=== PATIENT | male | born 1960 | race Caucasian/White ===

== ENCOUNTER 2020-03-15 15:28 | Emergency (ER) | payer OTHER, MEDICAID, SELFPAY ==
[2020-03-15] VITALS (7 sets, daily range): BP systolic 106–123; BP diastolic 65–79; PULSE 80–85; RESP 15–23; TEMP 37.1; O2SAT 95–99; BMI 30.1
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
--- NOTE | 2020-03-15 16:39 | DI.RAD.S_ITS ---
PROCEDURE: XR CHEST 1V INDICATIONS: chest pain TECHNIQUE: One view of the chest was acquired. COMPARISON: None. FINDINGS: Surgical changes and devices: None. Lungs and pleura: Lungs are clear. No pleural effusions or pneumothorax. Mediastinum: Mediastinal contours appear normal. Heart size is normal. Bones and chest wall: No suspicious bony lesions. Overlying soft tissues appear unremarkable. IMPRESSION: No acute cardiopulmonary abnormality. Dictated by: Buddy Borja M.D. on 03/15/2020 at 17:28 Approved by: Buddy Borja M.D. on 03/15/2020 at 17:29
[2020-03-15 16:54] LABS: Prothrombin Time 11.6 SECONDS (10.1-12.7)
[2020-03-15 16:57] LABS: PTT Partial Thromboplastin Tim 28 SECONDS (26.4-36.2)
[2020-03-15 17:01] LABS: Alanine Aminotransferase 19 IU/L (<50); Albumin 4.4 g/dL (3.5-5.0); Albumin Globulin Ratio 1.5 (1.0-2.8); Alkaline Phosphatase 69 U/L (38-126); Aspartate Aminotransferase 22 IU/L (17-59); BUN Creatinine Ratio 15.6 (6-22); Blood Urea Nitrogen 17 mg/dL (9-20); Calcium 9.2 mg/dL (8.4-10.2); Carbon Dioxide 32 mmol/L (22-32); Chloride 102 mmol/L (98-107); Creatine Kinase 51 U/L (55-170); Estimated Glomerular Filt Rate > 60.0 mL/min (>60); Globulin 2.9 g/dL (1.7-4.1); Glucose 160 mg/dL (70-100); HEMOLYSIS < 15 (0-50); Lipase 113 U/L (23-300); Potassium 3.9 mmol/L (3.4-5.1); Sodium 140 mmol/L (137-145); Total Protein 7.3 g/dL (6.3-8.2)
[2020-03-15 17:04] LABS: Add Manual Diff / Slide Review NO; Basophils Absolute Auto 0 /uL (0-100); Basophils Percent Auto 0.2 % (0-2); Eosinophils Absolute Auto 0 /uL (0-450); Hematocrit 44.6 % (41-53); Hemoglobin 15.5 g/dL (13.5-17.5); Lymphocytes Absolute Auto 900 /uL (1100-4500); Lymphocytes Percent Auto 8.9 % (25-40); Mean Corpuscular HGB Conc 34.7 % (30-36); Mean Corpuscular Hemoglobin 31.7 PG (26-34); Mean Corpuscular Volume 91.3 fL (80-100); Monocytes Absolute Auto 400 /uL (0-900); Monocytes Percent Auto 4.1 % (3-14); Neutrophils Absolute Auto 8500 /uL (1500-7000); Neutrophils Percent Auto 86.8 % (50-75); Platelet Count 264 X10^3/uL (150-400); Red Blood Cell Count 4.88 X10^6/uL (4.5-5.9); Red Cell Distribution Width 12.4 % (11.6-14.8); White Blood Cell Count 9.7 X10^3/uL (4.5-11.0)
[2020-03-15] MEDS: SODIUM CHLORIDE 0.9% 1,000 ML 150 ML IV (17:04)
[2020-03-15] MEDS: ASPIRIN 81 MG CHEW TAB 324 MG PO (17:04)
[2020-03-15 17:11] LABS: Troponin I < 0.012 ng/mL (0.01-0.034)
[2020-03-15 17:36] LABS: COVID19 -Nasal RAPID Negative (Negative)
== END 2020-03-15 18:46 | disposition home or self-care (01) ==
PROVIDERS: Emergency Provider Emergency Medicine
DX: R07.89 Other chest pain (principal); R42 Dizziness and giddiness
CPT/HCPCS: 36415; 71045; 80053; 82550; 83690; 84484; 85025; 85610; 85730; 87635; 93005; 93010; 96360; 96361; 99284

== ENCOUNTER → 2020-04-13 16:38 | Outpatient (CLI) | payer OTHER, MEDICAID, SELFPAY ==
--- NOTE | 2020-04-13 | DI.MRI.S_ITS ---
PROCEDURE: MR HEAD/BRAIN WO CON INDICATIONS: Unspecified dementia without behavioral disturbance TECHNIQUE: Non-contrast axial T1 spin echo, axial T2 fast spin echo, sagittal and axial FLAIR, coronal T2 fast spin echo, axial gradient echo, axial diffusion and ADC through the brain. COMPARISON: None. FINDINGS: Image quality: Excellent. CSF spaces: Ventricles appear symmetric in size and shape. Basal cisterns are patent. No extra-axial fluid collections. Brain: No intracranial bleeds or mass effects. There is cerebral volume loss. There are periventricular and deep white matter chronic small vessel ischemic changes. Brainstem appears normal. Diffusion-weighted images show no acute ischemic insults. No chronic ischemic insults. Normal intravascular flow voids are present. Note is made of a cavum septum pellucidum. When discovered in isolation, this is considered to be a developmental variant of no clinical consequence. Skull and face: Calvarial bone marrow is normal in signal. Orbits are normal. Sinuses: Sinuses and mastoids are clear. There is mild leftward nasal septal deviation seen. IMPRESSION: Generalized brain parenchymal volume loss is seen, which is more prominent than would normally be expected for a patient of this age. No findings of acute or subacute infarction can be seen. Dictated by: Barry Mcdermott M.D. on 04/13/2020 at 18:25 Approved by: Barry Mcdermott M.D. on 04/13/2020 at 18:26
== END ==
PROVIDERS: PCP Psychiatry & Neurology Neurology; Referring Provider Psychiatry & Neurology Neurology; Visit Provider Psychiatry & Neurology Neurology
DX: F03.90 Unspecified dementia, unspecified severity, without behavioral disturbance, psychotic disturbance, mood disturbance, and anxiety (principal)
CPT/HCPCS: 70551

== ENCOUNTER 2021-09-08 21:53 | Emergency (ER) | payer OTHER, MEDICAID, SELFPAY ==
[2021-09-08 22:07] VITALS: BP 133/84; PULSE 76; RESP 18; TEMP 36.8; O2SAT 98
[2021-09-08 22:25] LABS: COVID19 -Nasal RAPID Negative (Negative)
--- NOTE | 2021-09-08 22:35 | ED.GENADULT ---
HPI - General Adult General Chief complaint: Upper Respiratory Symptoms Stated complaint: Coughing persistant X 6 Time Seen by Provider: 09/08/21 22:06 Source: patient Mode of arrival: Ambulatory History of Present Illness HPI narrative: 61-year-old Male who is here for evaluation of a dry cough that he has had for the past 6 days. He denies sinus congestion, sore throat, productive cough, shortness of breath, headache. Has not tried anything for symptoms prior to arrival. Was concerned that the cough has persisted this long Related Data Previous Rx's Medication Instructions Recorded benzonatate 100 mg capsule 100 mg PO TID PRN #30 cap 09/08/21 Allergies Allergy/AdvReac Type Severity Reaction Status Date / Time No Known Drug Allergies Allergy Verified 03/15/20 15:39 Review of Systems Constitutional Constitutional: Denies fever(s) ENT Ears, Nose, Mouth, and Throat: Reports system reviewed and no additional complaints, except as documented and Reports as per HPI Cardiovascular Cardiovascular: Reports system reviewed and no additional complaints, except as documented Respiratory Respiratory: Reports as per HPI and Reports system reviewed and no additional complaints, except as documented Integumentary/Breasts Skin/Breast: Reports system reviewed and no additional complaints, except as documented Hematologic/Lymphatic On Anticoagulants: No Patient History Medical History Dementia Surgical History (Updated 03/15/20 @ 16:54 by Radha Adorno DO) H/O exploratory laparotomy Social History Smoking Status: Never smoker Smoking Status: Never smoker alcohol intake frequency: holidays/special occasions only Substance Use Type: does not use Exam Initial Vital Signs Initial Vital Signs: Vital Signs Temperature 98.3 F 09/08/21 22:07 Pulse Rate 76 09/08/21 22:07 Respiratory Rate 18 09/08/21 22:07 Blood Pressure 133/84 09/08/21 22:07 Pulse Oximetry 98 09/08/21 22:07 Const General: cooperative, comfortable and well developed HENMT Head: normal to inspection and normocephalic Ears: TM's normal bilaterally Mouth: oral mucosae normal Throat: posterior oropharynx normal Resp Effort & Inspection: normal respiratory effort Auscultation: clear to auscultation bilaterally Skin General: no rashes or lesions noted Extrem General: normal to inspection and capillary refill normal Course Orders Ordered: ED Orders 09/08/21 22:00 COVID19 -Nasal RAPID/Pre-Proc Stat Discontinued Medications Benzonatate (Benzonatate 100 Mg Capsule) 100 mg PO NOW ONE Stop: 09/08/21 22:36 Last Admin: 09/08/21 22:47 Dose: 100 mg Documented by: PIPPA Vital Signs Vital signs: Vital Signs - 8 hr 09/08/21 22:07 Temperature 98.3 F Pulse Rate 76 Respiratory Rate 18 Blood Pressure 133/84 Pulse Oximetry 98 Medical Decision Making Lab Data Labs: Lab Results 09/08/21 Range/Units 22:00 SARS-CoV-2 (PCR) Negative (Negative) MDM Narrative Medical decision making narrative: COVID is negative. Lungs are clear. Nonproductive cough. Not hypoxic. Not tachypneic. Clear lung exam. Afebrile. Low suspicion for pneumonia. No indication for radiologic studies. I do suspect upper respiratory infection given the nature of the cough. No indication for antibiotics currently. Will provide Tessalon Perles to see if this does not improve so his symptoms however he was informed that this may not take his symptoms completely way. He was given return precautions. He did expressed understanding and agreement. Discharge Plan Departure Patient Disposition: Home Clinical Impression: Cough Instructions: Cough (Alternative Therapy), Cough Activity Restrictions/Additional Instructions: Your COVID test today was negative. You do not have pneumonia. Recommend that we try a cough medicine unfortunately this medicine does not always completely take the cough away. It was sent to [facility] in [place] per your request. Contact your primary doctor for a follow-up. Return to the emergency department for any new or worsening symptoms. Prescriptions: New benzonatate 100 mg capsule 100 mg PO TID PRN (Reason: cough) Qty: 30 0RF Referrals: Paulina Mancera MD [Primary Care Provider] -
[2021-09-08] MEDS: BENZONATATE 100 MG CAPSULE PO (22:47)
== END 2021-09-08 22:54 | disposition home or self-care (01) ==
PROVIDERS: Emergency Provider Emergency Medicine; PCP Psychiatry & Neurology Neurology
DX: R05.9 Cough, unspecified (principal); Z20.822 Contact with and (suspected) exposure to COVID-19
CPT/HCPCS: 87635; 99283; C9803

== ENCOUNTER 2021-11-17 09:53 | Emergency (ER) | payer OTHER, MEDICAID, SELFPAY ==
[2021-11-17 10:08] VITALS: BP 139/89; PULSE 76; RESP 20; TEMP 37; O2SAT 97
--- NOTE | 2021-11-17 10:19 | ED.PSYCH ---
HPI - Psych General Chief Complaint: Psychiatric Symptoms Stated Complaint: Mental concerns- not taking meds Time Seen by Provider: 11/17/21 10:06 Source: patient and family (Brother) Mode of arrival: Family Vehicle History of Present Illness HPI Narrative: Patient is a 61-year-old male. He is here with his brother. Apparently has a diagnosis of dementia. Patient has no specific complaints. He was brought to the emergency department today by his brother because apparently the patient has not been taking his medications as directed. He was recently seen at the ?[facility] [place] [facility]down at [facility]. He was on 2 specific medications and was started on trazodone recently. His brother states that the patient thinks that he does not need to take his other 2 medications now and only the trazodone. There is obviously issues with his medication management. The patient has been mostly managing his own medicines. His brother states that he now can not find the trazodone or 1 of his other medicines. Apparently the patient has become somewhat agitated. Brother states that he brought the patient in to get ?straightened out? in his mind on what medications he should be taking. Related Data Previous Rx's Medication Instructions Recorded benzonatate 100 mg capsule 100 mg PO TID PRN cough #30 caps 09/08/21 Allergies Allergy/AdvReac Type Severity Reaction Status Date / Time No Known Drug Allergies Allergy Verified 11/17/21 10:13 Review of Systems Cardiovascular Comments: Patient denies chest pain Respiratory Comments: Shortness of breath Gastrointestinal Comments: Denies abdominal pain Psychiatric Psychiatric: Reports system reviewed and no additional complaints, except as documented Patient History Medical History Dementia Surgical History (Updated 03/15/20 @ 16:54 by Radha Adorno DO) H/O exploratory laparotomy Social History Smoking Status: Never smoker Smoking Status: Never smoker alcohol intake frequency: holidays/special occasions only Substance Use Type: does not use Exam Initial Vital Signs Initial Vital Signs: Vital Signs Temperature 98.6 F 11/17/21 10:08 Pulse Rate 76 11/17/21 10:08 Respiratory Rate 20 11/17/21 10:08 Blood Pressure 139/89 11/17/21 10:08 Pulse Oximetry 97 11/17/21 10:08 Oxygen Delivery Method 11/17/21 10:08 Const General: cooperative and healthy appearing HENNURY Head: normal to inspection Resp Effort & Inspection: normal respiratory effort Cardio Rate: regular rate Skin General: no rashes or lesions noted Neuro General: patient alert, patient awake and moves all extremities Extrem General: normal to inspection Course Orders Ordered: ED Orders 11/17/21 10:07 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 He is here with his brother. His brothers concern was that he was not taking his medications as directed. His brother states that the patient thinks that he only needs to be on the trazodone and not the other 2 medications. The brother's concerned about his ability to take care of the patient at home. Unfortunately there is no social work available today. The patient is not going to meet any criteria for a DERECK or any other psychiatric admission. Unfortunately there is not much more that we can offer out of the emergency department other than reassure the patient that he should be taking the 3 medications. I did tell him this. I informed him that his brother can help him take the medicines. He agreed to take the medications. Will discharge patient home. Discharge Plan Departure Patient Disposition: Home Clinical Impression: Dementia Activity Restrictions/Additional Instructions: Leo, you should be taking all 3 medications that have been provided to you by your doctors. These medications should help make you feel better. Your brother and [id number] are trying to help you in it is safe to be at home with them. Prescriptions: No Action benzonatate 100 mg capsule 100 mg PO TID PRN (Reason: cough) Qty: 30 0RF Referrals: Paulina Mancera MD [Primary Care Provider] -
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
[2021-11-17 12:01] VITALS: BP 109/77; PULSE 63; RESP 18; O2SAT 99
== END 2021-11-17 12:02 | disposition home or self-care (01) ==
PROVIDERS: Emergency Provider Emergency Medicine; PCP Psychiatry & Neurology Neurology
DX: F03.90 Unspecified dementia, unspecified severity, without behavioral disturbance, psychotic disturbance, mood disturbance, and anxiety (principal)
CPT/HCPCS: 99283